=== PATIENT | female | born 1940 | race Caucasian/White ===

== ENCOUNTER → 2016-09-20 | Outpatient (CLI) | payer MEDICARE, OTHER ==
[~2016-09-20] MED LIST: ACET325T14 PO; ALLO100T30 PO; BUME1TAB21 PO; CEFT2PIG2 IVPB; CITA10TA4 PO; ENOX80SY5 SQ; FURO-92 PO; FURO-93 PO; FURO40TA6 PO; HYDR-3138 PO; IBRU140C MT; LEVO112T2 PO; METR500T PO; NAPR1TAB25 MT; NITR50CA11 PO; OMEP-110 PO; OXYB10TA PO; OXYC10TA32 PO; POLY17PO5 PO; POTA10TA12 PO; PRED-402 PO; PRED20TA PO; RIVA20TA PO; SENN8.6C2 PO; SULF1TAB3 PO; VANC125C11 PO
== END | disposition home or self-care (01) ==
LOC: ROC 11:11
PROVIDERS: ATTEND Radiology Radiation Oncology
DX: D33.1 Benign neoplasm of brain, infratentorial (principal)
CPT/HCPCS: G0463

== ENCOUNTER → 2017-01-25 | Outpatient (CLI) | payer MEDICARE, OTHER | END | disposition home or self-care (01) | LOC: CFH 16:19 | PROVIDERS: ATTEND Family Medicine | DX: R60.0 Localized edema (principal) ==

== ENCOUNTER → 2017-10-24 | Outpatient (CLI) | payer MEDICARE, OTHER ==
[~2017-10-24] MED LIST changes: -HYDR-3138 PO; +HYDR-3237 PO; -OXYC10TA32 PO; +OXYC10TA47 PO; +SULF-169 PO; -SULF1TAB3 PO
== END | disposition home or self-care (01) ==
LOC: ROC 07:53
PROVIDERS: ATTEND Radiology Radiation Oncology
DX: C71.9 Malignant neoplasm of brain, unspecified (principal); C91.10 Chronic lymphocytic leukemia of B-cell type not having achieved remission; Z92.3 Personal history of irradiation
CPT/HCPCS: G0463

== ENCOUNTER → 2018-06-11 | Outpatient (CLI) | payer MEDICARE, OTHER ==
[~2018-06-11] MED LIST changes: +ALLO300T PO; +BUME0.5T PO; +FOLI-17 PO; +GADOBUTROL 10 MMOL/10 ML PFS ONE; +IBRU140C PO; +LEVO125T PO; +MAGNES; +THIA100T67 PO; +UBID100C41 PO
== END | disposition home or self-care (01) ==
LOC: CFH 08:01
PROVIDERS: ATTEND Radiology Radiation Oncology
DX: D32.1 Benign neoplasm of spinal meninges (principal); R60.0 Localized edema; G93.0 Cerebral cysts; G31.9 Degenerative disease of nervous system, unspecified
CPT/HCPCS: 70553; A9585

== ENCOUNTER → 2018-06-12 | Outpatient (CLI) | payer MEDICARE, OTHER ==
[~2018-06-12] MED LIST changes: -GADOBUTROL 10 MMOL/10 ML PFS ONE
== END | disposition home or self-care (01) ==
LOC: ROC 07:22
PROVIDERS: ATTEND Radiology Radiation Oncology
DX: Z08 Encounter for follow-up examination after completed treatment for malignant neoplasm (principal); D32.1 Benign neoplasm of spinal meninges
CPT/HCPCS: G0463

== ENCOUNTER 2020-04-28 10:24 | Inpatient (IN) | payer MEDICARE, OTHER ==
[~2020-04-28] VITALS: Ht 165.1 cm; Wt 76.4 kg
[~2020-04-28 10:24] MED LIST changes: -BUME0.5T PO; +BUME0.5T2 PO; -OXYB10TA PO; +OXYB10TA26 PO
--- NOTE | 2020-04-28 10:36 | NUR ---
[facility] DIRECTOR INTELLIGENCE OFFICER NOTE: PT'S SYMPTOMS AND TIMELINE REVIEWED WITH EDMD CASTELLON, PER MD CODE NEURO NOT INDICATED.
--- NOTE | 2020-04-28 11:08 | NUR ---
REPORT RECEIVED FROM NICOL REINA FOR TRANSFER OF PATIENT CARE.
[2020-04-28 11:48] LABS: ALBUMIN 2.9 g/dL (3.4-5.0); ANION GAP 2 mmol/L (5-15); CALCIUM 8.4 mg/dL (8.5-10.1); CHLORIDE 110 mmol/L (98-107)
[2020-04-28 11:59] LABS: ALANINE AMINOTRANSFERASE 10 U/L (12-78); ALKALINE PHOSPHATASE 75 U/L (45-117); BILIRUBIN,TOTAL 0.9 mg/dL (0.2-1.0); CREATININE 0.72 mg/dL (0.55-1.02); TOTAL PROTEIN 4.8 g/dL (6.4-8.2)
[2020-04-28] MEDS ORDERED: SODIUM CHLORIDE FLUSH 10ML SYR IVF ONE (12:00)
[2020-04-28 12:14] LABS: FREE T4 (FREE THYROXINE) 0.94 ng/dL (0.76-1.46)
--- NOTE | 2020-04-28 12:18 | NUR ---
Patient resting in gurney, connected to environmental monitoring specialist, no signs of acute distress, side rails up x2, call light within reach.
[2020-04-28 12:21] LABS: INTERNATIONAL NORMALIZED RATIO 1.04 (0.93-1.1)
--- NOTE | 2020-04-28 13:20 | NUR ---
MASTER COSMETOLOGIST STARTED 20 GAUGE IV LEFT AC FOR CTA SCAN.
--- NOTE | 2020-04-28 13:26 | NUR ---
PATIENT TO IMAGING.
[2020-04-28 13:42] LABS: MEAN CORPUSCULAR HGB CONC 31.7 g/dL (32.4-35.8); MEAN PLATELET VOLUME 10.7 fL (7.4-10.4); PLATELET COUNT 71 x10^3/uL (130-400); RED BLOOD COUNT 3.67 x10^6/uL (3.82-5.3); RED CELL DISTRIBUTION WIDTH 16.9 % (9.6-15.2)
[2020-04-28] MEDS ORDERED: OMNIPAQUE 350 MG/ML, 100ML BOTTLE ONE (13:48)
--- NOTE | 2020-04-28 13:48 | NUR ---
PATIENT BACK FROM CT. RESTING IN [facility], WATCHING TV, CONNECTED TO TRENCH PIPE LAYER, SIDE RAILS UP X2, CALL LIGHT WITHIN REACH.
--- NOTE | 2020-04-28 13:53 | NUR ---
PATIENT ON BEDPAN AND WILL TRY TO VOID FOR URINE SAMPLE.
--- NOTE | 2020-04-28 14:00 | NUR ---
URINE SAMPLE COLLECTED AND SENT TO LAB.
--- NOTE | 2020-04-28 14:00 | NUR ---
PT SITTING UPRIGHT ON GURNEY WATCHING TV. PT DENIES ANY NEEDS AT THIS TIME. CALL LIGHT WITHIN REACH, FALL PRECAUTIONS IN PLACE. WILL CONTINUE TO MONITOR.
--- NOTE | 2020-04-28 14:05 | NUR ---
BEDSIDE REPORT RECEIVED FROM TSERING CAMARENA.
[2020-04-28 14:19] LABS: MD YES
[2020-04-28 14:24] LABS: <PLATELET ESTIMATE> DECREASED; EOS#(MANUAL) 0.14 x10^3/uL (0.0-0.4); EOS% (MANUAL) 2 % (1-7); GIANT PLATELETS 1+; LARGE PLATELETS 1+; LYMPH#(MANUAL) 4.35 x10^3/uL (1-3.4); LYMPHS% (MANUAL) 64 % (22-44); MONOS#(MANUAL) 0.14 x10^3/uL (0.3-2.7); MONOS% (MANUAL) 2 % (2-9); REACTIVE LYMPHS # (MANUAL) 0.75 x10^3/uL (0-0); REACTIVE LYMPHS % (MANUAL) 11 % (0-0); SEG#(MANUAL) 1.43 x10^3/uL (1.8-6.8); SEGS% (MANUAL) 21 % (42-75)
[2020-04-28 14:25] LABS: SMUDGE CELLS 1+
[2020-04-28 14:26] LABS: ANISOCYTOSIS 2+; OVALOCYTES 1+
[2020-04-28 14:27] LABS: MICROSCOPIC INDICATED
[2020-04-28 14:27] LABS: SCHISTOCYTES 1+
[2020-04-28] MEDS ORDERED: hydrALAzine 20 MG/ML, 1ML IVPush PRN (15:00)
[2020-04-28] MEDS ORDERED: ONDANSETRON 2MG/ML, 2ML IVPush PRN (15:00)
[2020-04-28] MEDS ORDERED: ONDANSETRON ODT 4 MG PO PRN (15:00)
[2020-04-28] MEDS ORDERED: ENALAPRILAT 1.25 MG/ML, 2ML IVPush PRN (15:00)
--- NOTE | 2020-04-28 15:02 | NUR ---
PT SITTING CALMLY ON GURNEY WATCHING TV. PT DENIES ANY NEEDS AT THIS TIME. NAD, VSS. WILL CONTINUE TO MONITOR. CALL LIGHT IN REACH, FALL PRECAUTIONS IN PLACE.
--- NOTE | 2020-04-28 15:20 | NUR ---
THROUGHPUT RN: PT'S LEVEL OF CARE NOTED TO BE CARDIAC SURGERY UNIT. CALLED AND SPOKE W/ DR. STARK IN REGARDS TO LEVEL OF CARE ORDER. PER DR. STARK LEVEL OF CARE TO BE MEDICAL TELEMETRY. READ BACK.
--- NOTE | 2020-04-28 15:53 | NUR ---
PT TO MRI
[2020-04-28] MEDS ORDERED: GADOTERATE 7.5 MMOL/15 ML VIAL ONE (16:02)
--- NOTE | 2020-04-28 16:35 | NUR ---
PT RETURNED FROM MRI. PURE WICK PLACED PER PT REQUEST. NO ADDITIONAL NEEDS AT THIS TIME. NAD, VSS. FRIEND AT BEDSIDE. CALL LIGHT WITHIN REACH.
--- NOTE | 2020-04-28 17:00 | NUR ---
PT SUPINE ON GURNEY. NAD, VSS. PT DAUGHTER AT BEDSIDE. PURE WICK REMAINS IN PLACE. WARM BLAKET PROVIDED. PT DENIES ANY NEEDS ADDITIONAL NEEDS AT THIS TIME. CALL LIGHT IN REACH, FALL PRECAUTIONS IN PLACE. WILL CONTINUE TO MONITOR.
--- NOTE | 2020-04-28 18:03 | NUR ---
PT SUPINE ON GURNEY WATCHING TV CALMLY. PT GRANDSON AT BEDSIDE. PT DENIES ANY NEEDS AT THIS TIME. NAD. CALL LIGHT IN REACH, FALL PRECAUTIONS IN PLACE. WILL CONTINUE TO MONITOR.
--- NOTE | 2020-04-28 18:53 | NUR ---
BEDSIDE REPORT GIVEN CÉSAR CAMARENA.
--- NOTE | 2020-04-28 20:57 | NUR ---
Attempted report x1 at [id number]
--- NOTE | 2020-04-28 21:19 | NUR ---
Report given to Fang CAMARENA
[2020-04-28 21:57] VITALS: BP 171/67
[2020-04-28] MEDS: ACETAMINOPHEN 325 MG TABLET PO PRN (23:00)
[2020-04-28] MEDS: MELATONIN 5 MG TABLET PO PRN (23:00)
[2020-04-29 02:00] VITALS: BP 167/69
[2020-04-29 05:00] LABS: MEAN CORPUSCULAR HEMOGLOBIN 32.9 pg (27.0-34.8); MEAN CORPUSCULAR HGB CONC 31.9 g/dL (32.4-35.8); MEAN PLATELET VOLUME 10.5 fL (7.4-10.4); PLATELET COUNT 76 x10^3/uL (130-400); RED BLOOD COUNT 3.72 x10^6/uL (3.82-5.3); RED CELL DISTRIBUTION WIDTH 16.5 % (9.6-15.2)
[2020-04-29 05:10] LABS: ANION GAP 2 mmol/L (5-15); CALCIUM 8.4 mg/dL (8.5-10.1); CHLORIDE 108 mmol/L (98-107)
[2020-04-29 06:00] LABS: MD YES
[2020-04-29 06:19] LABS: MONOS#(MANUAL) 0.22 x10^3/uL (0.3-2.7); MONOS% (MANUAL) 4 % (2-9)
[2020-04-29 06:20] LABS: SEGS% (MANUAL) 22 % (42-75)
[2020-04-29 06:21] LABS: EOS#(MANUAL) 0.06 x10^3/uL (0.0-0.4); EOS% (MANUAL) 1 % (1-7); LYMPH#(MANUAL) 4.09 x10^3/uL (1-3.4); LYMPHS% (MANUAL) 73 % (22-44); SEG#(MANUAL) 1.23 x10^3/uL (1.8-6.8)
[2020-04-29 06:22] LABS: SMUDGE CELLS 1+
[2020-04-29 06:23] LABS: ANISOCYTOSIS 1+
[2020-04-29 06:24] LABS: OVALOCYTES 1+
[2020-04-29 06:25] LABS: <PLATELET ESTIMATE> DECREASED; LARGE PLATELETS 1+
[2020-04-29 07:30] VITALS: BP 138/72
[2020-04-29] MEDS: ACETAMINOPHEN 325 MG TABLET PO PRN (10:07)
[2020-04-29] MEDS ORDERED: ASPIRIN 325 MG TABLET PO SCH (11:30)
[2020-04-29 13:58] VITALS: BP 125/68
[2020-04-29 20:15] VITALS: BP 127/71
[2020-04-30 01:26] VITALS: BP 132/79
[2020-04-30 06:59] VITALS: BP 150/66
[2020-04-30 15:23] VITALS: BP 131/68
[2020-04-30] MEDS ORDERED: SODIUM CHLORIDE 0.9% 1,000 ML IV ONE (18:00)
[2020-04-30 18:25] VITALS: BP 119/65
[2020-05-01 01:54] VITALS: BP 128/79
[2020-05-01 07:20] VITALS: BP 157/73
[2020-05-01] MEDS ORDERED: PROPOFOL 10 MG/ML, 100ML IV ONE (08:00)
[2020-05-01] MEDS ORDERED: MIDAZOLAM 1 MG/ML, 5ML ONE (08:00)
[2020-05-01] MEDS ORDERED: LORazepam 2 MG/ML, 1ML ONE ×2 (08:41→08:44)
[2020-05-01] MEDS ORDERED: LORazepam 2 MG/ML, 1ML IVPush ONE (09:00)
[2020-05-01] MEDS ORDERED: DEXTROSE 50%, 50ML SYRINGE IVPush PRN (09:30)
[2020-05-01] MEDS ORDERED: PROPOFOL 100 ML IV PRN ×2 (09:30→10:00)
[2020-05-01] MEDS ORDERED: GLUCAGON 1 MG IM PRN (09:30)
[2020-05-01] MEDS ORDERED: DEXTROSE 4 GM TAB.CHEW PO PRN (09:30)
[2020-05-01] MEDS ORDERED: PHARMACY MAY ADJ FOR RENAL FX MC SCH (09:30)
[2020-05-01] MEDS ORDERED: FENTANYL PF 100 MCG/2ML IVPush PRN (09:30)
[2020-05-01] MEDS ORDERED: LIDOCAINE-MPF 1%, 2ML ENDO PRN (09:30)
[2020-05-01] MEDS ORDERED: LORazepam 2 MG/ML, 1ML IV PRN (09:30)
[2020-05-01] MEDS ORDERED: PANTOPRAZOLE 40MG TABLET PO SCH (12:00)
[2020-05-01 12:33] LABS: BASOPHILS % (AUTO) 1 % (0-1); EOSINOPHILS % (AUTO) 0 % (1-7); LYMPHOCYTES % (AUTO) 40 % (22-44); MEAN CORPUSCULAR HEMOGLOBIN 32.5 pg (27.0-34.8); MEAN CORPUSCULAR HGB CONC 31.7 g/dL (32.4-35.8); MEAN PLATELET VOLUME 10.3 fL (7.4-10.4); MONOCYTES % (AUTO) 9 % (2-9); NEUTROPHILS % (AUTO) 51 % (42-75); PLATELET COUNT 68 x10^3/uL (130-400); RED BLOOD COUNT 3.86 x10^6/uL (3.82-5.3)
[2020-05-01] MEDS: SODIUM CHLORIDE FLUSH 10ML SYR IVF SCH ×2 (12:38→21:00)
[2020-05-01] MEDS: PANTOPRAZOLE 40 MG IV IVPush SCH (12:38)
[2020-05-01 12:45] LABS: INTERNATIONAL NORMALIZED RATIO 1.05 (0.93-1.1); PROTHROMBIN TIME 11.1 Seconds (9.6-11.5)
[2020-05-01 12:47] LABS: MICROSCOPIC AUTO
[2020-05-01 12:51] LABS: ANION GAP 5 mmol/L (5-15); CALCIUM 8.3 mg/dL (8.5-10.1); CHLORIDE 107 mmol/L (98-107)
[2020-05-01 12:55] LABS: ALANINE AMINOTRANSFERASE 7 U/L (12-78); ALKALINE PHOSPHATASE 75 U/L (45-117); BILIRUBIN, DIRECT 0.3 mg/dL (0.1-0.2); BILIRUBIN,INDIRECT 0.7 mg/dL (0.0-2.0); CREATININE 0.53 mg/dL (0.55-1.02)
[2020-05-01 13:04] LABS: MD SCAN
[2020-05-01] MEDS: ACETAMINOPHEN 325 MG TABLET PO PRN (13:33)
[2020-05-01] MEDS ORDERED: SODIUM CHLORIDE 0.9% 1,000 ML IV SCH (18:00)
[2020-05-02 03:45] LABS: BASOPHILS % (AUTO) 1 % (0-1); EOSINOPHILS % (AUTO) 4 % (1-7); LYMPHOCYTES % (AUTO) 29 % (22-44); MEAN CORPUSCULAR HGB CONC 32.6 g/dL (32.4-35.8); MEAN PLATELET VOLUME 10.2 fL (7.4-10.4); MONOCYTES % (AUTO) 12 % (2-9); NEUTROPHILS % (AUTO) 54 % (42-75); PLATELET COUNT 67 x10^3/uL (130-400); RED BLOOD COUNT 3.52 x10^6/uL (3.82-5.3); RED CELL DISTRIBUTION WIDTH 16.3 % (9.6-15.2)
[2020-05-02 03:49] LABS: MD NO
[2020-05-02 03:51] LABS: ANION GAP 5 mmol/L (5-15); CALCIUM 7.7 mg/dL (8.5-10.1); CHLORIDE 110 mmol/L (98-107); CREATININE 0.52 mg/dL (0.55-1.02)
[2020-05-02] MEDS ORDERED: MAGNESIUM SULFATE PMX 2GM/50ML 50 ML IV ONE (05:00)
[2020-05-02] MEDS: PANTOPRAZOLE 40 MG IV IVPush SCH (06:00)
[2020-05-02] MEDS: LEVOFLOXACIN/PMX 750MG/150ML 150 ML IV SCH (17:09)
[2020-05-02] MEDS ORDERED: LACTATED RINGERS 500 ML IVBOLUS ONE (18:00)
[2020-05-02] MEDS: SODIUM CHLORIDE FLUSH 10ML SYR IVF SCH (22:31)
[2020-05-03 04:34] LABS: BASOPHILS % (AUTO) 1 % (0-1); EOSINOPHILS % (AUTO) 2 % (1-7); LYMPHOCYTES % (AUTO) 27 % (22-44); MEAN CORPUSCULAR HEMOGLOBIN 32.4 pg (27.0-34.8); MEAN CORPUSCULAR HGB CONC 31.8 g/dL (32.4-35.8); MEAN PLATELET VOLUME 9.9 fL (7.4-10.4); MONOCYTES % (AUTO) 12 % (2-9); NEUTROPHILS % (AUTO) 59 % (42-75); RED BLOOD COUNT 3.44 x10^6/uL (3.82-5.3); RED CELL DISTRIBUTION WIDTH 15.7 % (9.6-15.2)
[2020-05-03 04:40] LABS: ANION GAP 5 mmol/L (5-15); CALCIUM 7.9 mg/dL (8.5-10.1); CHLORIDE 110 mmol/L (98-107); CREATININE 0.44 mg/dL (0.55-1.02)
[2020-05-03 05:46] LABS: PLATELET COUNT 43 x10^3/uL (130-400)
[2020-05-03 05:47] LABS: MD SCAN
[2020-05-03] MEDS ORDERED: MAGNESIUM SULFATE PMX 2GM/50ML 50 ML IV ONE (06:00)
[2020-05-03] MEDS ORDERED: POTASSIUM CHLORIDE 40 MEQ in SODIUM CHLORIDE 0.9% 500 ML IV ONE (06:00)
[2020-05-03] MEDS: PANTOPRAZOLE 40 MG IV IVPush SCH (06:26)
[2020-05-03 08:38] VITALS: BP 141/60
[2020-05-03 09:00] VITALS: BP 138/53
[2020-05-03] MEDS: SODIUM CHLORIDE FLUSH 10ML SYR IVF SCH ×2 (09:00→20:52)
[2020-05-03 11:45] VITALS: BP 114/89
[2020-05-03] MEDS: LEVOFLOXACIN/PMX 750MG/150ML 150 ML IV SCH (17:37)
[2020-05-03 20:00] VITALS: BP 118/46
[2020-05-03] MEDS: MELATONIN 5 MG TABLET PO PRN (22:49)
[2020-05-04 02:00] VITALS: BP 149/55
[2020-05-04 04:33] LABS: BASOPHILS % (AUTO) 1 % (0-1); EOSINOPHILS % (AUTO) 3 % (1-7); LYMPHOCYTES % (AUTO) 39 % (22-44); MEAN CORPUSCULAR HEMOGLOBIN 32.6 pg (27.0-34.8); MEAN CORPUSCULAR HGB CONC 31.7 g/dL (32.4-35.8); MEAN PLATELET VOLUME 10.4 fL (7.4-10.4); MONOCYTES % (AUTO) 13 % (2-9); NEUTROPHILS % (AUTO) 43 % (42-75); PLATELET COUNT 63 x10^3/uL (130-400); RED BLOOD COUNT 3.36 x10^6/uL (3.82-5.3); RED CELL DISTRIBUTION WIDTH 16.2 % (9.6-15.2)
[2020-05-04 04:37] LABS: MD NO
[2020-05-04 04:45] LABS: ANION GAP 6 mmol/L (5-15); CALCIUM 8.1 mg/dL (8.5-10.1); CHLORIDE 112 mmol/L (98-107); CREATININE 0.46 mg/dL (0.55-1.02)
[2020-05-04] MEDS: PANTOPRAZOLE 40 MG IV IVPush SCH (05:25)
[2020-05-04] MEDS: LEVOTHYROXINE 112 MCG TABLET PO SCH (05:26)
[2020-05-04 09:32] VITALS: BP 120/42
[2020-05-04] MEDS: ALLOPURINOL 300 MG TABLET PO SCH (09:35)
[2020-05-04] MEDS: SODIUM CHLORIDE FLUSH 10ML SYR IVF SCH ×2 (09:35→20:01)
[2020-05-04] MEDS: CITALOPRAM 10 MG TABLET PO SCH (09:35)
[2020-05-04 15:32] VITALS: BP 156/67
[2020-05-04] MEDS: LEVOFLOXACIN/PMX 750MG/150ML 150 ML IV SCH (17:56)
[2020-05-04] MEDS: MELATONIN 5 MG TABLET PO PRN (20:08)
[2020-05-05 00:32] VITALS: BP 149/71
[2020-05-05 05:14] LABS: BASOPHILS % (AUTO) 1 % (0-1); EOSINOPHILS % (AUTO) 3 % (1-7); LYMPHOCYTES % (AUTO) 41 % (22-44); MEAN CORPUSCULAR HEMOGLOBIN 32.5 pg (27.0-34.8); MEAN CORPUSCULAR HGB CONC 31.7 g/dL (32.4-35.8); MEAN PLATELET VOLUME 10.4 fL (7.4-10.4); MONOCYTES % (AUTO) 15 % (2-9); NEUTROPHILS % (AUTO) 40 % (42-75); PLATELET COUNT 76 x10^3/uL (130-400); RED BLOOD COUNT 3.51 x10^6/uL (3.82-5.3); RED CELL DISTRIBUTION WIDTH 16.2 % (9.6-15.2)
[2020-05-05 05:22] LABS: ANION GAP 4 mmol/L (5-15); CALCIUM 8.4 mg/dL (8.5-10.1); CHLORIDE 113 mmol/L (98-107); CREATININE 0.55 mg/dL (0.55-1.02)
[2020-05-05] MEDS: LEVOTHYROXINE 112 MCG TABLET PO SCH (05:29)
[2020-05-05] MEDS: PANTOPRAZOLE 40 MG IV IVPush SCH (05:29)
[2020-05-05 06:13] LABS: MD SCAN
[2020-05-05 06:20] VITALS: BP 138/62
[2020-05-05] MEDS: SODIUM CHLORIDE FLUSH 10ML SYR IVF SCH ×2 (08:52→20:26)
[2020-05-05] MEDS: ALLOPURINOL 300 MG TABLET PO SCH (08:52)
[2020-05-05] MEDS: CITALOPRAM 10 MG TABLET PO SCH (08:52)
[2020-05-05 12:11] VITALS: BP 122/66
[2020-05-05] MEDS: LEVOFLOXACIN/PMX 750MG/150ML 150 ML IV SCH (17:25)
[2020-05-05 20:10] VITALS: BP 144/70
[2020-05-05] MEDS: MELATONIN 5 MG TABLET PO PRN (20:25)
[2020-05-06 00:13] VITALS: BP 145/79
[2020-05-06 04:54] LABS: BASOPHILS % (AUTO) 1 % (0-1); EOSINOPHILS % (AUTO) 3 % (1-7); LYMPHOCYTES % (AUTO) 43 % (22-44); MEAN CORPUSCULAR HEMOGLOBIN 32.5 pg (27.0-34.8); MEAN CORPUSCULAR HGB CONC 31.5 g/dL (32.4-35.8); MEAN PLATELET VOLUME 10.5 fL (7.4-10.4); MONOCYTES % (AUTO) 14 % (2-9); NEUTROPHILS % (AUTO) 40 % (42-75); PLATELET COUNT 73 x10^3/uL (130-400); RED BLOOD COUNT 3.38 x10^6/uL (3.82-5.3); RED CELL DISTRIBUTION WIDTH 16.3 % (9.6-15.2)
[2020-05-06 05:01] LABS: CHLORIDE 112 mmol/L (98-107); MD NO
[2020-05-06 05:06] LABS: ANION GAP 4 mmol/L (5-15); CALCIUM 8.3 mg/dL (8.5-10.1); CREATININE 0.46 mg/dL (0.55-1.02)
[2020-05-06] MEDS: LEVOTHYROXINE 112 MCG TABLET PO SCH (05:16)
[2020-05-06] MEDS: PANTOPRAZOLE 40 MG IV IVPush SCH (05:16)
[2020-05-06 06:30] VITALS: BP 129/76
[2020-05-06] MEDS: CITALOPRAM 10 MG TABLET PO SCH (09:38)
[2020-05-06] MEDS: ALLOPURINOL 300 MG TABLET PO SCH (09:38)
[2020-05-06] MEDS: SODIUM CHLORIDE FLUSH 10ML SYR IVF SCH ×2 (09:38→21:27)
[2020-05-06 14:03] VITALS: BP 129/74
[2020-05-06] MEDS: LEVOFLOXACIN/PMX 750MG/150ML 150 ML IV SCH (17:27)
[2020-05-06 19:27] VITALS: BP 123/62
[2020-05-06] MEDS: MELATONIN 5 MG TABLET PO PRN (20:32)
[2020-05-07 00:17] VITALS: BP 130/73
[2020-05-07 05:43] LABS: ANION GAP 4 mmol/L (5-15); BASOPHILS % (AUTO) 1 % (0-1); CALCIUM 8.4 mg/dL (8.5-10.1); CHLORIDE 109 mmol/L (98-107); EOSINOPHILS % (AUTO) 2 % (1-7); LYMPHOCYTES % (AUTO) 45 % (22-44); MEAN CORPUSCULAR HEMOGLOBIN 32.2 pg (27.0-34.8); MEAN CORPUSCULAR HGB CONC 31.6 g/dL (32.4-35.8); MEAN PLATELET VOLUME 10.3 fL (7.4-10.4); MONOCYTES % (AUTO) 11 % (2-9); NEUTROPHILS % (AUTO) 42 % (42-75); PLATELET COUNT 74 x10^3/uL (130-400); RED BLOOD COUNT 3.32 x10^6/uL (3.82-5.3); RED CELL DISTRIBUTION WIDTH 16.2 % (9.6-15.2)
[2020-05-07 05:45] LABS: CREATININE 0.46 mg/dL (0.55-1.02); MD NO
[2020-05-07] MEDS: LEVOTHYROXINE 112 MCG TABLET PO SCH (06:00)
[2020-05-07] MEDS: PANTOPRAZOLE 40 MG IV IVPush SCH (06:03)
[2020-05-07 07:07] VITALS: BP 146/75
[2020-05-07] MEDS: ALLOPURINOL 300 MG TABLET PO SCH (10:05)
[2020-05-07] MEDS: SODIUM CHLORIDE FLUSH 10ML SYR IVF SCH ×2 (10:05→20:47)
[2020-05-07] MEDS: CITALOPRAM 10 MG TABLET PO SCH (10:05)
[2020-05-07 12:27] VITALS: BP 129/76
[2020-05-07 19:02] VITALS: BP 136/65
[2020-05-07] MEDS: MELATONIN 5 MG TABLET PO PRN (20:47)
[2020-05-08 00:21] VITALS: BP 132/83
[2020-05-08] MEDS: PANTOPRAZOLE 40MG TABLET PO SCH (05:45)
[2020-05-08] MEDS: LEVOTHYROXINE 112 MCG TABLET PO SCH (05:45)
[2020-05-08 05:49] LABS: BASOPHILS % (AUTO) 0 % (0-1); EOSINOPHILS % (AUTO) 3 % (1-7); LYMPHOCYTES % (AUTO) 47 % (22-44); MEAN CORPUSCULAR HEMOGLOBIN 32.5 pg (27.0-34.8); MEAN CORPUSCULAR HGB CONC 31.8 g/dL (32.4-35.8); MEAN PLATELET VOLUME 10.3 fL (7.4-10.4); MONOCYTES % (AUTO) 12 % (2-9); NEUTROPHILS % (AUTO) 39 % (42-75); PLATELET COUNT 78 x10^3/uL (130-400); RED BLOOD COUNT 3.41 x10^6/uL (3.82-5.3); RED CELL DISTRIBUTION WIDTH 15.9 % (9.6-15.2)
[2020-05-08 05:55] LABS: MD NO
[2020-05-08 06:15] LABS: ANION GAP 3 mmol/L (5-15); CALCIUM 8.5 mg/dL (8.5-10.1); CHLORIDE 109 mmol/L (98-107); CREATININE 0.47 mg/dL (0.55-1.02)
[2020-05-08 07:18] VITALS: BP 156/68
[2020-05-08] MEDS: ALLOPURINOL 300 MG TABLET PO SCH (08:59)
[2020-05-08] MEDS: CITALOPRAM 10 MG TABLET PO SCH (08:59)
[2020-05-08] MEDS: SODIUM CHLORIDE FLUSH 10ML SYR IVF SCH ×2 (08:59→20:32)
[2020-05-08 13:39] VITALS: BP 125/63
[2020-05-08 20:21] VITALS: BP 130/69
[2020-05-08] MEDS: MELATONIN 5 MG TABLET PO PRN (20:25)
[2020-05-09 00:37] VITALS: BP 138/79
[2020-05-09] MEDS: PANTOPRAZOLE 40MG TABLET PO SCH (05:57)
[2020-05-09] MEDS: LEVOTHYROXINE 112 MCG TABLET PO SCH (05:57)
[2020-05-09] MEDS: ACETAMINOPHEN 325 MG TABLET PO PRN (06:01)
[2020-05-09 06:03] VITALS: BP 144/75
[2020-05-09 06:24] LABS: MEAN CORPUSCULAR HEMOGLOBIN 32.4 pg (27.0-34.8); MEAN CORPUSCULAR HGB CONC 31.8 g/dL (32.4-35.8); MEAN PLATELET VOLUME 10.3 fL (7.4-10.4); PLATELET COUNT 77 x10^3/uL (130-400); RED BLOOD COUNT 3.41 x10^6/uL (3.82-5.3); RED CELL DISTRIBUTION WIDTH 15.8 % (9.6-15.2)
[2020-05-09 06:31] LABS: CHLORIDE 111 mmol/L (98-107)
[2020-05-09 06:36] LABS: ANION GAP 4 mmol/L (5-15); CALCIUM 8.7 mg/dL (8.5-10.1); CREATININE 0.52 mg/dL (0.55-1.02)
[2020-05-09 07:26] LABS: MD YES
[2020-05-09 07:27] LABS: EOS#(MANUAL) 0.06 x10^3/uL (0.0-0.4); EOS% (MANUAL) 1 % (1-7); LYMPH#(MANUAL) 2.75 x10^3/uL (1-3.4); LYMPHS% (MANUAL) 50 % (22-44); MONOS#(MANUAL) 0.28 x10^3/uL (0.3-2.7); MONOS% (MANUAL) 5 % (2-9); REACTIVE LYMPHS # (MANUAL) 0.33 x10^3/uL (0-0); REACTIVE LYMPHS % (MANUAL) 6 % (0-0); SEG#(MANUAL) 2.09 x10^3/uL (1.8-6.8); SEGS% (MANUAL) 38 % (42-75)
[2020-05-09 07:28] LABS: ANISOCYTOSIS 1+; HYPOCHROMIA 1+; OVALOCYTES 1+
[2020-05-09 07:29] LABS: <PLATELET ESTIMATE> DECREASED; <PLT MORPHOLOGY> NORMAL PLT MORPH
[2020-05-09] MEDS: ALLOPURINOL 300 MG TABLET PO SCH (08:42)
[2020-05-09] MEDS: CITALOPRAM 10 MG TABLET PO SCH (08:42)
[2020-05-09] MEDS: SODIUM CHLORIDE FLUSH 10ML SYR IVF SCH ×2 (08:44→20:55)
[2020-05-09 11:18] VITALS: BP 100/63
[2020-05-09 19:45] VITALS: BP 117/67
[2020-05-09] MEDS: MELATONIN 5 MG TABLET PO PRN (20:55)
[2020-05-10 01:04] VITALS: BP 137/76
[2020-05-10] MEDS: LEVOTHYROXINE 112 MCG TABLET PO SCH (05:17)
[2020-05-10] MEDS: PANTOPRAZOLE 40MG TABLET PO SCH (05:17)
[2020-05-10 06:10] LABS: BASOPHILS % (AUTO) 1 % (0-1); EOSINOPHILS % (AUTO) 3 % (1-7); LYMPHOCYTES % (AUTO) 46 % (22-44); MEAN CORPUSCULAR HEMOGLOBIN 32.3 pg (27.0-34.8); MEAN CORPUSCULAR HGB CONC 31.8 g/dL (32.4-35.8); MEAN PLATELET VOLUME 9.3 fL (7.4-10.4); MONOCYTES % (AUTO) 11 % (2-9); NEUTROPHILS % (AUTO) 40 % (42-75); PLATELET COUNT 70 x10^3/uL (130-400); RED BLOOD COUNT 3.42 x10^6/uL (3.82-5.3); RED CELL DISTRIBUTION WIDTH 16.1 % (9.6-15.2)
[2020-05-10 06:14] LABS: MD NO
[2020-05-10 06:23] LABS: CALCIUM 8.5 mg/dL (8.5-10.1); CHLORIDE 108 mmol/L (98-107)
[2020-05-10 06:24] LABS: CREATININE 0.54 mg/dL (0.55-1.02)
[2020-05-10 06:42] VITALS: BP 143/62
[2020-05-10 07:01] LABS: ANION GAP 4 mmol/L (5-15)
[2020-05-10] MEDS: SODIUM CHLORIDE FLUSH 10ML SYR IVF SCH ×2 (08:58→19:42)
[2020-05-10] MEDS: ALLOPURINOL 300 MG TABLET PO SCH (08:58)
[2020-05-10] MEDS: CITALOPRAM 10 MG TABLET PO SCH (08:58)
[2020-05-10 11:42] VITALS: BP 123/74
[2020-05-10 19:08] VITALS: BP 118/67
[2020-05-10] MEDS: MELATONIN 5 MG TABLET PO PRN (19:42)
[2020-05-11 02:00] VITALS: BP 110/64
[2020-05-11] MEDS: PANTOPRAZOLE 40MG TABLET PO SCH (05:37)
[2020-05-11] MEDS: LEVOTHYROXINE 112 MCG TABLET PO SCH (05:38)
[2020-05-11 06:32] LABS: BASOPHILS % (AUTO) 1 % (0-1); EOSINOPHILS % (AUTO) 4 % (1-7); LYMPHOCYTES % (AUTO) 45 % (22-44); MEAN CORPUSCULAR HEMOGLOBIN 32.3 pg (27.0-34.8); MEAN CORPUSCULAR HGB CONC 31.9 g/dL (32.4-35.8); MEAN PLATELET VOLUME 9.4 fL (7.4-10.4); MONOCYTES % (AUTO) 10 % (2-9); NEUTROPHILS % (AUTO) 42 % (42-75); PLATELET COUNT 60 x10^3/uL (130-400); RED BLOOD COUNT 3.46 x10^6/uL (3.82-5.3); RED CELL DISTRIBUTION WIDTH 16.4 % (9.6-15.2)
[2020-05-11 06:36] LABS: ANION GAP 0 mmol/L (5-15); CALCIUM 8.6 mg/dL (8.5-10.1); CHLORIDE 109 mmol/L (98-107); CREATININE 0.45 mg/dL (0.55-1.02)
[2020-05-11 06:41] LABS: MD NO
[2020-05-11 07:03] VITALS: BP 123/74
[2020-05-11] MEDS: SODIUM CHLORIDE FLUSH 10ML SYR IVF SCH (09:32)
[2020-05-11] MEDS: CITALOPRAM 10 MG TABLET PO SCH (09:33)
[2020-05-11] MEDS: ALLOPURINOL 300 MG TABLET PO SCH (09:33)
[2020-05-11 12:44] VITALS: BP 125/69
== END 2020-05-11 19:04 | DRG 64 ==
LOC: ED 11:05 → SUATTDRO 14:20 → EDIP 14:53 → 4WST 21:35 → CCU 05-01 09:04 → 4WST 05-04 13:42
PROVIDERS: ADMIT Hospitalist; ATTEND Hospitalist
PROC: 0T9B30Z Drainage of Bladder with Drainage Device, Percutaneous Approach (ICD-10-PCS; 2020-04-28)
PROC: 5A1935Z Respiratory Ventilation, Less than 24 Consecutive Hours (ICD-10-PCS; principal; 2020-05-01)
PROC: 0BH17EZ Insertion of Endotracheal Airway into Trachea, Via Natural or Artificial Opening (ICD-10-PCS; 2020-05-01)
PROC: 30233N1 Transfusion of Nonautologous Red Blood Cells into Peripheral Vein, Percutaneous Approach (ICD-10-PCS; 2020-05-03)
DX: I60.9 Nontraumatic subarachnoid hemorrhage, unspecified (principal); G93.6 Cerebral edema; G93.41 Metabolic encephalopathy; J15.5 Pneumonia due to Escherichia coli; J96.01 Acute respiratory failure with hypoxia; C91.10 Chronic lymphocytic leukemia of B-cell type not having achieved remission; D68.59 Other primary thrombophilia; C71.9 Malignant neoplasm of brain, unspecified; D61.818 Other pancytopenia; D49.6 Neoplasm of unspecified behavior of brain; I48.0 Paroxysmal atrial fibrillation; D32.9 Benign neoplasm of meninges, unspecified; Z20.828 Contact with and (suspected) exposure to other viral communicable diseases; E03.9 Hypothyroidism, unspecified; E16.2 Hypoglycemia, unspecified; E83.42 Hypomagnesemia; E87.6 Hypokalemia; F17.200 Nicotine dependence, unspecified, uncomplicated; F32.9 Major depressive disorder, single episode, unspecified; G40.901 Epilepsy, unspecified, not intractable, with status epilepticus; H70.93 Unspecified mastoiditis, bilateral; M10.9 Gout, unspecified; Z66 Do not resuscitate; I95.9 Hypotension, unspecified; Z80.1 Family history of malignant neoplasm of trachea, bronchus and lung; Z83.3 Family history of diabetes mellitus; Z85.841 Personal history of malignant neoplasm of brain; Z86.73 Personal history of transient ischemic attack (TIA), and cerebral infarction without residual deficits; Z87.11 Personal history of peptic ulcer disease; Z92.3 Personal history of irradiation; Z79.899 Other long term (current) drug therapy; Z79.891 Long term (current) use of opiate analgesic; Z88.2 Allergy status to sulfonamides; Z88.8 Allergy status to other drugs, medicaments and biological substances; Z88.1 Allergy status to other antibiotic agents
CPT/HCPCS: 36415; 36600; 70450; 70496; 70498; 70553; 71045; 80048; 80053; 80076; 81001; 82140; 82803; 82962; 83605; 83735; 84439; 84443; 84478; 85025; 85610; 85730; 87040; 87070; 87077; 87081; 87086; 87186; 87205; 87635; 94002; 94003; 95819; 99285; G0378; J1956; J2250; J2704; J3480; J7120; Q9967; 92523-GN; A9575; C9113; J2060; J3475; J7030; J7040; P9037